=== PATIENT | female | born 1960 | race Caucasian/White ===

== ENCOUNTER 2020-05-28 17:10 | Emergency (ER) | payer BC ==
--- NOTE | 2020-05-28 17:37 | EDM.PDOC ---
ED HPI GENERAL MEDICAL PROBLEM - General Stated Complaint: CHEST TIGHT, PULSE AND BLOOD PRESSURE UP Time Seen by Provider: 05/28/20 17:25 Source of Information: Reports: Patient History Limitations: Reports: No Limitations - History of Present Illness INITIAL COMMENTS - FREE TEXT/NARRATIVE: This 60 yo female patient reports to the ED with intermittent chest pain over the past 2 days. The patient reports this afternoon (about 1500) her pain was worse than previous episodes and lasted longer. The patient reports it took 1 hour to get to our facility due to bad weather and a long drive. By the time the patient was evaluated, the patient reports she no longer has any pain. 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 [No Known Home Meds] 05/28/20 [History] ED ROS GENERAL - Review of Systems Review Of Systems: Comprehensive ROS is negative, except as noted in HPI. ED EXAM, GENERAL - Physical Exam Exam: See Below Exam Limited By: No Limitations General Appearance: Alert, WD/WN, Anxious, Moderate Distress Eye Exam: Bilateral Eye: EOMI, Normal Inspection, PERRL Ears: Normal External Exam, Normal Canal, Hearing Grossly Normal, Normal TMs Nose: Normal Inspection, Normal Mucosa, No Blood Throat/Mouth: Normal Inspection, Normal Lips, Normal Teeth, Normal Gums, Normal Oropharynx, Normal Voice, No Airway Compromise Head: Atraumatic, Normocephalic Neck: Normal Inspection, Supple, Non-Tender, Full Range of Motion Respiratory/Chest: No Respiratory Distress, Lungs Clear, Normal Breath Sounds, No Accessory Muscle Use, Chest Non-Tender Cardiovascular: Normal Peripheral Pulses, Regular Rate, Rhythm, No Edema, No Gallop, No JVD, No Murmur, No Rub GI/Abdominal: Normal Bowel Sounds, Soft, Non-Tender, No Organomegaly, No Distention, No Abnormal Bruit, No Mass (Female) Exam: Deferred Rectal (Female) Exam: Deferred Back Exam: Normal Inspection, Full Range of Motion, NT Extremities: Normal Inspection, Normal Range of Motion, Non-Tender, Normal Capillary Refill, No Pedal Edema Neurological: Alert, Oriented, CN II-XII Intact, Normal Cognition, Normal Gait, Normal Reflexes, No Motor/Sensory Deficits Psychiatric: Normal Affect, Normal Mood Skin Exam: Warm, Dry, Intact, Normal Color, No Rash Lymphatic: No Adenopathy Course - Vital Signs Last Recorded V/S: Last Vital Signs Temp 37.2 C 05/28/20 17:16 Pulse 77 05/28/20 17:16 Resp 16 05/28/20 17:16 BP 143/92 H 05/28/20 17:16 Pulse Ox 100 05/28/20 17:16 - Orders/Labs/Meds Orders: Active Orders 24 hr Category Date Time Status EKG Documentation Completion [RC] STAT Care 05/28/20 17:27 Active Labs: Laboratory Tests 05/28/20 05/28/20 Range/Units 17:37 17:37 WBC 6.2 (5.0-10.0) 10^3/uL RBC 4.77 (4.2-5.4) 10^6/uL Hgb 13.9 (12.0-16.0) g/dL Hct 41.0 (37.0-47.0) % MCV 86.0 (80-100) fL MCH 29.1 (27.0-34.0) pg MCHC 33.9 (33.0-35.0) g/dL Plt Count 263 (150-450) 10^3/uL Neut % (Auto) 51.1 (42.2-75.2) % Lymph % (Auto) 37.7 (20.5-50.1) % [place] % (Auto) 7.8 (2-8) % Eos % (Auto) 2.8 (1.0-3.0) % Baso % (Auto) 0.6 (0.0-1.0) % Sodium 140 (136-145) mmol/L Potassium 3.7 (3.5-5.1) mmol/L Chloride 101 (98-107) mmol/L Carbon Dioxide 30 (21-32) mmol/L Anion Gap 12.7 (7-13) mEq/L BUN 12 (7-18) mg/dL Creatinine 0.87 (0.55-1.02) mg/dL Est Cr Clr Drug Dosing 63.42 mL/min Estimated GFR (MDRD) > 60 BUN/Creatinine Ratio 13.8 (No establ ref range) Glucose 91 (74-99) mg/dL Calcium 9.3 (8.5-10.1) mg/dL Magnesium 2.0 (1.8-2.4) mg/dL Total Bilirubin 0.6 (0.2-1.0) mg/dL AST 23 (15-37) U/L ALT 33 (14-59) U/L Alkaline Phosphatase 65 (46-116) U/L Troponin I < 0.017 (0.000-0.056) ng/mL Total Protein 8.3 H (6.4-8.2) g/dL Albumin 3.7 (3.4-5.0) g/dL Globulin 4.6 Albumin/Globulin Ratio 0.8 Amylase 65 (25-115) U/L Lipase 64 L (73-393) U/L Departure - Departure Time of Disposition: 18:26 Disposition: Home, Self-Care 01 Condition: Good Clinical Impression: Nonspecific chest pain Instructions: Nonspecific Chest Pain, Adult, [id number] Forms: ED Department Discharge Care Plan Goals: The patient was advised of the examination, lab, EKG and x-ray results during the visit. The patient was encouraged to continue to monitor her symptoms and follow-up with her primary care facility. If the patient has any additional symptoms or concerns, the patient should either return to the emergency department or visit her primary care facility. Sepsis Event Note (ED) - Focused Exam Vital Signs: Vital Signs Temp Pulse Resp BP Pulse Ox 05/28/20 17:16 37.2 C 77 16 143/92 H 100
--- NOTE | 2020-05-28 18:03 | CR ---
PROCEDURE INFORMATION: Exam: XR Chest, 1 View Exam date and time: 05/28/2020 5:53 PM Age: 60 years old Clinical indication: Chest pain TECHNIQUE: Imaging protocol: XR of the chest Views: 1 view. Total images: 1 COMPARISON: No relevant prior studies available. FINDINGS: Lungs: Unremarkable. No consolidation. Pleural spaces: Unremarkable. No pleural effusion. No pneumothorax. Heart/Mediastinum: Unremarkable. No cardiomegaly. Bones/joints: Unremarkable. IMPRESSION: No acute findings.
[2020-05-28 18:04] LABS: ANION GAP 12.7 mEq/L (7-13); CHLORIDE,CL 101 mmol/L (98-107); SODIUM,NA 140 mmol/L (136-145)
== END 2020-05-28 18:36 | disposition home or self-care (01) ==
LOC: DL.ED 17:10
DX: R07.9 Chest pain, unspecified (principal)
CPT/HCPCS: 36415; 71045; 80053; 82150; 83690; 83735; 84484; 85025; 93005; 99283; 99285-25

== ENCOUNTER 2023-05-10 06:29 | Day surgery (SDC) | payer BC ==
[2023-05-10] MEDS: Dextrose 5%-0.45% NaCl 1,000 ML IV SCH (06:56)
[2023-05-10] MEDS ORDERED: fentaNYL 100 MCG/2 ML SDV ONE (06:58)
[2023-05-10] MEDS ORDERED: Midazolam 1 MG/ML 2 ML SDV ONE (06:58)
[2023-05-10] MEDS: fentaNYL 100 MCG/2 ML SDV IV ONE ×3 (07:47→07:59)
[2023-05-10] MEDS: Midazolam 1 MG/ML 2 ML SDV IV ONE ×6 (07:48→07:57)
== END 2023-05-10 09:57 | disposition home or self-care (01) ==
LOC: DL.ENDO 06:29
PROVIDERS: ATTEND Internal Medicine Gastroenterology
DX: Z12.11 Encounter for screening for malignant neoplasm of colon (principal); K64.8 Other hemorrhoids; K57.30 Diverticulosis of large intestine without perforation or abscess without bleeding
CPT/HCPCS: J2250; J3010; J7042